=== PATIENT | female | born 1990 ===

== ENCOUNTER 2017-01-07 23:55 | Emergency (ER) | payer OTHER ==
[2017-01-07 23:56] VITALS: BMI 32.9
[2017-01-08 00:03] VITALS: BP 123/93; PULSE 70; RESP 16; TEMP 98.7; O2SAT 100
[2017-01-08 01:03] LABS: HEMATOCRIT 39.3 % (34.0-47.0); MEAN CELL VOLUME 82.4 fl (81.0-99.0); MEAN CORPUSCULAR HEMOGLOBIN 27.3 pg (27.0-31.0); MEAN CORPUSCULAR HGB CONC 33.2 g/dL (33.0-37.0); RED CELL DISTRIBUTION WIDTH 13.7 % (11.5-14.5); WHITE BLOOD COUNT 9.4 K/uL (4.8-10.8)
--- NOTE | 2017-01-08 01:06 | ED PDOC ---
HPI: Female Pain Chief Complaint (Provider): cramping and vaginal bleeding in first trimester History Per: Patient History/Exam Limitations: no limitations Onset/Duration Of Symptoms: Days (1), Gradual Current Symptoms Are (Timing): Still Present Severity: Moderate Pain Scale Rating Of: 7 Quality Of Discomfort: Cramping Associated Symptoms: denies: Fever, Chills, Nausea, Vomiting, Diarrhea, Loss Of Appetite, Back Pain, Urinary Symptoms Alleviating Factors: None Additional History Per: Patient Additional Complaint(s): 26 y/o presenting at roughly 10 weeks GA by LMP with 1 day of vaginal bleeding and crampy suprapubic pain. States pain started this AM, moderate intensity 02/12, no radiation, alleviating or aggravating factors. Associated with vaginal spotting initially last night but has increased to moderate bleeding as pain increased in intensity. Denies f/ c/n/v/cp/sob/dysuria/ any trauma or falls. Last intercourse was 3 days ago, some brownish discharge post intercourse which resolved spontaneously. No recent ravel or sick contacts. OBGYN appt upcoming January 17 at [facility]. Taking PNV, no US done yet in current . OBHx: , 3 FT vaginal deliveries w/o complications; 1 elective termination ( D&C was performed, does not recall GA at the time of termination) <Slade Horton - Last Filed: 01/08/17 01:20> <Fredy Romero - Last Filed: 01/08/17 02:31> Time Seen by Provider: 01/08/17 00:13 Chief Complaint (Nursing): Female Genitourinary Past Medical History Vital Signs: Last Vital Signs Temp 98.7 F 01/07/17 23:59 Pulse 70 01/07/17 23:59 Resp 16 01/07/17 23:59 BP 123/93 H 01/07/17 23:59 Pulse Ox 100 01/07/17 23:59 - Medical History PMH: No Chronic Diseases - Surgical History Surgical History: No Surg Hx - Family History Family History: States: Unknown Family Hx - Living Arrangements Living Arrangements: With Family - Social History Current smoker - smoking cessation education provided: No Alcohol: None Drugs: Denies <Slade Horton - Last Filed: 01/08/17 01:20> Vital Signs: Last Vital Signs Temp 98.7 F 01/07/17 23:59 Pulse 70 01/07/17 23:59 Resp 16 01/07/17 23:59 BP 123/93 H 01/07/17 23:59 Pulse Ox 100 01/08/17 01:35 <Fredy Romero - Last Filed: 01/08/17 02:31> - Home Medications Home Medications: Ambulatory Orders Medication Instructions Recorded Ibuprofen [Motrin Tab] 600 mg PO Q6 PRN #0 tab 02/23/16 Nitrofurantoin Macrocrystals 100 mg PO BID 5 Days 01/08/17 [Macrobid] - Allergies Allergies/Adverse Reactions: Allergies Allergy/AdvReac Type Severity Reaction Status Date / Time No Known Allergies Allergy Verified 02/20/16 09:37 Review of Systems Constitutional: Negative for: Fever, Chills Cardiovascular: Negative for: Chest Pain, Edema, Light Headedness Respiratory: Negative for: Cough, Shortness of Breath Gastrointestinal: Negative for: Nausea, Vomiting Genitourinary Female: Positive for: Vaginal Bleeding, Pelvic Pain. Negative for : Dysuria, Frequency, Incontinence Skin: Negative for: Rash Neurological: Negative for: Weakness, Confusion, Dizziness <Slade Horton - Last Filed: 01/08/17 01:20> Physical Exam - Physical Exam Appears: Positive for: No Acute Distress Head Exam: Positive for: ATRAUMATIC Skin: Positive for: Normal Color, Warm, Dry Cardiovascular/Chest: Positive for: Regular Rate, Rhythm Respiratory: Positive for: Normal Breath Sounds Pelvic Exam: Positive for: Active Bleeding, Other (cervical os slightly open with some eden membranes protruding outward, pooling of blood in post. vaginal vault ). Negative for: Tender Adnexa, Tender Uterus Back: Negative for: L CVA Tenderness, R CVA Tenderness <Slade Horton - Last Filed: 01/08/17 01:20> - Laboratory Results Result Diagrams: 01/08/17 00:52 - ECG O2 Sat by Pulse Oximetry: 100 - Progress ED Course And Treament: Bleeding in first trimester SAB v. Ectopic - TVUS - quant. Beta HCG - UA - urine preg - cbc Re-evaluation Time: 01:35 Condition: Re-examined <Slade Horton - Last Filed: 01/08/17 01:20> - Laboratory Results Result Diagrams: 01/08/17 00:52 <Fredy Romero - Last Filed: 01/08/17 02:31> Disposition <Slade Horton - Last Filed: 01/08/17 01:20> - Disposition Disposition: Routine/Home Disposition Time: 02:30 <Fredy Romero - Last Filed: 01/08/17 02:31> - Clinical Impression Clinical Impression: Threatened , Urinary tract infection - Disposition [facility]errals[facility]] Condition: STABLE Additional Instructions: Please followup with your OB-SCALE TECHNICIAN in 2 days for repeat beta-hcg ( blood test) and ultrasound. Prescriptions: Nitrofurantoin Macrocrystals [Macrobid] 100 mg PO BID 5 Days Instructions: Threatened Miscarriage (ED), Urinary Tract Infection in (ED)
[2017-01-08 01:07] LABS: RBC URINE 1529 /hpf (0-3); URINE BACTERIA OCC (<OCC); URINE BILIRUBIN NEGATIVE (NEGATIVE); URINE BLOOD LARGE (NEGATIVE); URINE COLOR YELLOW (YELLOW); URINE GLUCOSE (UA) NEG (Normal); URINE KETONE NEGATIVE (NEGATIVE); URINE LEUKOCYTE ESTERASE TRACE Leu/uL (Negative); URINE PROTEIN 30 mg/dL (NEGATIVE); URINE UROBILINOGEN 0.2-1.0 mg/dL (0.2-1.0); WBC URINE 32 /hpf (0-5)
--- NOTE | 2017-01-08 02:07 | US ---
EXAM: US , Transvaginal CLINICAL HISTORY: 26 years old, female; Signs and symptoms; Lmp or gestational age (in weeks): 10/26/16; Other: Bleeding, cramping; ; Additional info: Cramping and bleeding in 1st trimester TECHNIQUE: Real-time transvaginal obstetrical ultrasound of the maternal pelvis and a first trimester with image documentation. Transvaginal imaging was used for better evaluation of the fetus and adnexa. EXAM DATE/TIME: 01/08/2017 12:08 AM COMPARISON: No relevant prior studies available. FINDINGS: The uterus measures 10 x 7 x 6 cm. There is an intrauterine fluid-filled sac with somewhat irregular borders that may represent a gestational sac however there is no yolk sac or pole for definitive determination. If it does represent a gestational sac, the diameter corresponds to gestational age of 7 weeks 0 days. Nabothian cysts are noted in the cervix. The ovaries are normal bilaterally. The right ovary measures approximately 2 x 3 x 3 cm. The left ovary measures approximately 3 x 3 x 2 cm. Color flow and doppler vascular waveforms were demonstrated to both ovaries. IMPRESSION: Probable intrauterine sac without yolk sac or pole as discussed above. Followup beta-hCG levels are recommended along with followup ultrasound.
== END 2017-01-08 02:44 | disposition home or self-care (01) ==
LOC: H.ER 23:55
DX: O20.0 Threatened abortion (principal); O23.40 Unspecified infection of urinary tract in pregnancy, unspecified trimester

== ENCOUNTER 2017-01-08 17:47 | Emergency (ER) | payer OTHER ==
[2017-01-08 17:47] VITALS: BMI 32.9
[2017-01-08 18:04] VITALS: BP 121/82; PULSE 92; RESP 22; TEMP 97.4; O2SAT 100
--- NOTE | 2017-01-08 19:18 | ED PDOC ---
HPI: Female Pain Time Seen by Provider: 01/08/17 18:16 Chief Complaint (Nursing): Female Genitourinary Chief Complaint (Provider): Vaginal Bleeding History Per: Patient History/Exam Limitations: no limitations Onset/Duration Of Symptoms: Days, Persistent Current Symptoms Are (Timing): Still Present Severity: Moderate Quality Of Discomfort: Cramping Associated Symptoms: Other (abdominal pain) Additional History Per: Prior Records Additional Complaint(s): Laina Boothe is a 26 year old female, with a past medical history of a urinary tract infection, which she was diagnosed with yesterday at this ER, who presents to the emergency department for the evaluation of persistent vaginal bleeding and some "passed tissue". Associated cramping abdominal pain is currently present. Of note, patient is currently 7 weeks . 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: none specified Abnormal Vaginal Bleeding: Yes Past Medical History Reviewed: Historical Data, Nursing Documentation, Vital Signs Vital Signs: Last Vital Signs Temp 97.4 F L 01/08/17 18:00 Pulse 92 H 01/08/17 18:00 Resp 22 01/08/17 18:00 BP 121/82 01/08/17 18:00 Pulse Ox 100 01/08/17 18:00 - Medical History Other PMH: Urinary Tract Infection - Surgical History Other surgeries: Dilation and Curettage - Family History Family History: States: No Known Family Hx - Social History Current smoker - smoking cessation education provided: No Ex-Smoker (has not smoked in the last 12 months): No Alcohol: None Drugs: Denies - Home Medications Home Medications: Ambulatory Orders Medication Instructions Recorded Ibuprofen [Motrin Tab] 600 mg PO Q6 PRN #0 tab 02/23/16 Nitrofurantoin Macrocrystals 100 mg PO BID 5 Days 01/08/17 [Macrobid] - Allergies Allergies/Adverse Reactions: Allergies Allergy/AdvReac Type Severity Reaction Status Date / Time No Known Allergies Allergy Verified 02/20/16 09:37 Review of Systems ROS Statement: Except As Marked, All Systems Reviewed And Found Negative Gastrointestinal: Positive for: Abdominal Pain ("cramping") Genitourinary Female: Positive for: Vaginal Bleeding Physical Exam - Reviewed Nursing Documentation Reviewed: Yes Vital Signs Reviewed: Yes - Physical Exam Appears: Positive for: Non-toxic, No Acute Distress Head Exam: Positive for: ATRAUMATIC, NORMOCEPHALIC Skin: Positive for: Normal Color, Warm Eye Exam: Positive for: EOMI, Normal appearance, PERRL Cardiovascular/Chest: Positive for: Regular Rate, Rhythm. Negative for: Murmur Respiratory: Positive for: Normal Breath Sounds. Negative for: Respiratory Distress Gastrointestinal/Abdominal: Positive for: Normal Exam, Soft, Tenderness ( suprapubic). Negative for: Guarding, Rebound Back: Positive for: Normal Inspection. Negative for: L CVA Tenderness, R CVA Tenderness Neurologic/Psych: Positive for: Alert, Oriented - ECG O2 Sat by Pulse Oximetry: 100 (RA) Pulse Ox Interpretation: Normal Medical Decision Making Medical Decision Makin:16 Initial Impression: Tissue passage r/o spontaneous Initial Plan: * OB 1st Trimester & OB Transvaginal Ultrasound * Beta-HCG, Quantitative * Reevaluation Scribe Attestation: Documented by Alcides Caba, acting as a scribe for Deneen Menedz MD. Provider Scribe Attestation: All medical record entries made by the Scribe were at my direction and personally dictated by me. I have reviewed the chart and agree that the record accurately reflects my personal performance of the history, physical exam, medical decision making, and the department course for this patient. I have also personally directed, reviewed, and agree with the discharge instructions and disposition. Disposition - Clinical Impression Clinical Impression: Incomplete miscarriage - Disposition [facility]errals: [facility] [[facility]] Disposition: Transfer of Care Disposition Time: 19:00 Condition: STABLE Instructions: Spontaneous Miscarriage (ED) Print Language: UKRAINIAN Patient Signed Over To: Fredy Romero Handoff Comments: Pending labs and ultrasound.
--- NOTE | 2017-01-08 19:50 | ED PDOC ---
- ECG O2 Sat by Pulse Oximetry: 100 (RA) Pulse Ox Interpretation: Normal Medical Decision Making Medical Decision Makin:00 Patient transferred over to provider from Deneen Mendez MD. Pending ultrasound. IMPRESSION: No intrauterine gestation seen. Findings could represent a complete or a not yet visible (less than 4 week) intrauterine gestation. Note that an ectopic gestation is not excluded entirely in this patient, however. Recommend correlation with quantitative beta HCG levels and the clinical presentation, as well as close clinical followup, including serial beta-hCG levels. 8PM: Pt. likely experiencing spontaneous Ab. Patient informed of results, POC collected and sent to lab for cytology. Told patient ot f/u w/ OB-TELEPHONE ADVICE NURSE for repeat beta testing and ultrasound in 2 days. Gave patient return precations: fever, chills, abdominal pain, worsening vaginal bleeding, or other concerning symptoms. Scribe Attestation: Documented by Alcides Caba, acting as a scribe for Fredy Romero MD. Provider Scribe Attestation: All medical record entries made by the Scribe were at my direction and personally dictated by me. I have reviewed the chart and agree that the record accurately reflects my personal performance of the history, physical exam, medical decision making, and the department course for this patient. I have also personally directed, reviewed, and agree with the discharge instructions and disposition. Disposition - Clinical Impression Clinical Impression: Incomplete miscarriage - POA Present On Arrival: None - Disposition [facility]errals: [facility] [[facility]] Disposition: Routine/Home Disposition Time: 20:20 Condition: STABLE Instructions: Spontaneous Miscarriage (ED) Print Language: MALAGASY
--- NOTE | 2017-01-08 19:59 | US ---
EXAM: US Pelvis Complete, Transabdominal CLINICAL HISTORY: 26 years old, female; Signs and symptoms; Lmp or gestational age (in weeks): 10/26/16; Antepartum complications; , hemorrhage; Additional info: Possible tissue passage TECHNIQUE: Real-time transabdominal pelvic ultrasound (complete) with image documentation. EXAM DATE/TIME: 01/08/2017 6:18 PM COMPARISON: No relevant prior studies available. FINDINGS: Note: Transvaginal scanning was not done because of patient refusal. Uterus: Measures 11 x 5 x 7.2 cm. No intrauterine gestation is seen. Endometrial stripe measures 1.1 cm in thickness, and does not appear significantly heterogeneous. Cervix appears long and closed. Right ovary: Within normal limits in appearance. Measures 3.1 x 1.9 x 2.0 cm. Flow seen in the right ovary on Doppler imaging, with no evidence of torsion. Left ovary: Within normal limits in appearance. Measures 2.6 x 1.6 x 2.6 cm. Flow seen in the left ovary on Doppler imaging, with no evidence of torsion. Cul-de-sac: No free fluid. IMPRESSION: No intrauterine gestation seen. Findings could represent a complete or a not yet visible (less than 4 week) intrauterine gestation. Note that an ectopic gestation is not excluded entirely in this patient, however. Recommend correlation with quantitative beta HCG levels and the clinical presentation, as well as close clinical followup, including serial beta-hCG levels. See above for remaining findings.
== END 2017-01-08 20:21 | disposition home or self-care (01) ==
LOC: H.ER 17:47
DX: O03.4 Incomplete spontaneous abortion without complication (principal); Z87.440 Personal history of urinary (tract) infections; Z87.891 Personal history of nicotine dependence

== ENCOUNTER 2017-01-10 09:33 | Emergency (ER) | payer OTHER ==
[2017-01-10 09:33] VITALS: BMI 32.9
[2017-01-10 09:38] VITALS: BP 111/68; PULSE 81; RESP 18; TEMP 98.9; O2SAT 97
--- NOTE | 2017-01-10 09:54 | ED PDOC ---
HPI: General Adult Time Seen by Provider: 01/10/17 09:37 Chief Complaint (Provider): Bloodwork follow up History Per: Patient History/Exam Limitations: no limitations Onset/Duration Of Symptoms: Days Have you had recent travel within the past 21 days to any of the following countries: [place], [place], [place] or [place]?: No Current Symptoms Are (Timing): Better Recently: Seen In ED Additional History Per: Patient Additional Complaint(s): The pt is a 26yo female, presents to the ED for repeat bloodwork as instructed upon her last ED visit. Pt reports she was here 2 days ago due to a miscarriage , had bloodwork as well as an ultrasound done. Pt's US showed no visible gestational sac. Currently, pt reports decreased cramping, pelvic pain, as well as decreased bleeding. She denies any nausea, vomiting, diarrhea or dysuria. Pt offers no additional medical complaints. Of note, pt [facility] visit however was informed it was "too packed" prompting her to visit the ED. Past Medical History Reviewed: Historical Data, Nursing Documentation, Vital Signs Vital Signs: Last Vital Signs Temp 98.9 F 01/10/17 09:37 Pulse 81 01/10/17 09:37 Resp 18 01/10/17 09:37 BP 111/68 01/10/17 09:37 Pulse Ox 97 01/10/17 13:10 - Medical History PMH: No Chronic Diseases - Surgical History Surgical History: No Surg Hx - Family History Family History: States: Unknown Family Hx - Social History Current smoker - smoking cessation education provided: No Alcohol: None Drugs: Denies - Home Medications Home Medications: Ambulatory Orders Medication Instructions Recorded Ibuprofen [Motrin Tab] 600 mg PO Q6 PRN #0 tab 02/23/16 Nitrofurantoin Macrocrystals 100 mg PO BID 5 Days 01/08/17 [Macrobid] - Allergies Allergies/Adverse Reactions: Allergies Allergy/AdvReac Type Severity Reaction Status Date / Time No Known Allergies Allergy Verified 01/10/17 09:57 Review of Systems ROS Statement: Except As Marked, All Systems Reviewed And Found Negative Gastrointestinal: Positive for: Abdominal Pain (decreased abdominal pain compared to last visit). Negative for: Nausea, Vomiting, Diarrhea Genitourinary Female: Positive for: Vaginal Bleeding (decreased vaginal bleeding compared to last visit). Negative for: Dysuria Physical Exam - Reviewed Nursing Documentation Reviewed: Yes Vital Signs Reviewed: Yes - Physical Exam Appears: Positive for: Well, Non-toxic, No Acute Distress Head Exam: Positive for: ATRAUMATIC, NORMAL INSPECTION, NORMOCEPHALIC Skin: Positive for: Normal Color, Warm, Dry Eye Exam: Positive for: Normal appearance Neck: Positive for: Normal, Supple Cardiovascular/Chest: Positive for: Regular Rate, Rhythm Respiratory: Negative for: Respiratory Distress Gastrointestinal/Abdominal: Positive for: Normal Exam, Soft. Negative for: Tenderness Back: Positive for: Normal Inspection. Negative for: L CVA Tenderness, R CVA Tenderness Extremity: Positive for: Normal ROM. Negative for: Tenderness, Pedal Edema Neurologic/Psych: Positive for: Alert, Oriented - Laboratory Results Result Diagrams: 01/10/17 10:13 01/10/17 10:13 Interpretation Of Abn Labs: 643.93 Interpretation Of Abnormal: 1779 previous bhcg - ECG O2 Sat by Pulse Oximetry: 97 (RA) Pulse Ox Interpretation: Normal - Progress ED Course And Treament: 1309: Stable. AAOx3. Pt. with miscarriage. Bhcg decreasing significantly. Fu with obgyn in 1 week for repeat bhcg. Pt. stable. Pain free. Continue uti med. Medical Decision Making Medical Decision Making: Time: 0950 Impression: follow up s/p miscarriage Plan: * Beta hCG * CBC * CMP * OB US Limited * OB Transvaginal * Reassess US Transvaginal Impression 01/08/17 Probable intrauterine sac without yolk sac or pole as discussed above. Followup beta-hCG levels are recommended along with followup ultrasound. US OB Impression 01/08/17 No intrauterine gestation seen. Findings could represent a complete or a not yet visible (less than 4 week) intrauterine gestation. Note that an ectopic gestation is not excluded entirely in this patient, however. Recommend correlation with quantitative beta HCG levels and the clinical presentation, as well as close clinical followup, including serial beta-hCG levels. Scribe Attestation: Documented by Beverley Barnes acting as a scribe for Cristian Baumann MD. Provider Attestation: All medical record entries made by the Scribe were at my direction and personally dictated by me. I have reviewed the chart and agree that the record accurately reflects my personal performance of the history, physical exam, medical decision making, and the department course for this patient. I have also personally directed, reviewed, and agree with the discharge instructions and disposition. Disposition - Clinical Impression Clinical Impression: Spontaneous miscarriage - Patient ED Disposition Is Patient to be Admitted: No Counseled Patient/Family Regarding: Studies Performed, Diagnosis, Need For Followup - Disposition [facility]errals[facility]] - 01/11/17 Disposition: Routine/Home Disposition Time: 13:45 Condition: STABLE Additional Instructions: Return if not better in 3 days. See the women[facility] clinic or here for repeat bhcg in 1 week. Instructions: Spontaneous Miscarriage (ED)
[2017-01-10 10:43] LABS: BASO % 0.6 % (0.0-2.0); EOS # 0.3 K/uL (0.0-0.7); HEMATOCRIT 41.5 % (34.0-47.0); LYMPH # 1.5 K/uL (1.0-4.3); LYMPH % 21.6 % (20.0-40.0); MEAN CELL VOLUME 83.4 fl (81.0-99.0); MEAN CORPUSCULAR HEMOGLOBIN 27.5 pg (27.0-31.0); MEAN CORPUSCULAR HGB CONC 32.9 g/dL (33.0-37.0); MONO # 0.4 K/uL (0.0-0.8); MONO % 5.4 % (0.0-10.0); NEUT # 4.8 K/uL (1.8-7.0); NEUT % 68.4 % (50.0-75.0); NRBC % 0.1 % (0.0-0.0)
[2017-01-10 11:02] LABS: ALB/GLOB RATIO 1.3 (1.0-2.1); ALKALINE PHOSPHATASE 74 U/L (38-126); ALT/SGPT 24 U/L (9-52); AST/SGOT 21 U/L (14-36); BILIRUBIN,TOTAL 0.4 mg/dl (0.2-1.3); BLOOD UREA NITROGEN 11 mg/dl (7-17); CALCIUM 9.2 mg/dL (8.4-10.2); CARBON DIOXIDE 24 mmol/L (22-30); CHLORIDE 107 mmol/L (98-107); GFR AFRICAN-AMERICAN > 60; GLUCOSE,RANDOM 111 mg/dL (65-105); POTASSIUM 3.7 MMOL/L (3.6-5.0); SODIUM 142 mmol/l (132-148); TOTAL PROTEIN 7.3 G/DL (6.3-8.2)
--- NOTE | 2017-01-10 16:49 | US ---
HISTORY: pain of ; could not see iup few days ago COMPARISON: 01/08/2017 TECHNIQUE: Transvaginal only. Real -time technique with 2D, duplex and color Doppler FINDINGS: UTERUS: Measures 4.1 x 6.7 x 11.7 cm. Normal in size and appearance. No fibroid or other mass lesion seen. ENDOMETRIUM: Measures 8.5 mm in diameter. No ultrasound findings to suggest gestational sac, fluid, debris, mass or polyp or other pathologic process within the endometrium. CERVIX: No cervical abnormality identified. RIGHT OVARY: Measures 2.2 x 1.5 x 3.1 cm. No solid mass. Normal flow. LEFT OVARY: Measures 1.3 x 2.1 x 2.8 cm. No solid mass. Normal flow. FREE FLUID: No significant free fluid noted. OTHER FINDINGS: None. IMPRESSION: Unremarkable pelvic ultrasound.
== END 2017-01-10 13:50 | disposition home or self-care (01) ==
LOC: H.ER 09:33
DX: O03.9 Complete or unspecified spontaneous abortion without complication (principal)

== ENCOUNTER 2017-07-27 18:00 | Emergency (ER) | payer OTHER, SELFPAY ==
[2017-07-27 18:01] VITALS: BMI 32.9
[2017-07-27 18:07] VITALS: BP 147/95; RESP 18; TEMP 98.9; O2SAT 99
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
[2017-07-27 18:51] VITALS: PULSE 68
[2017-07-27 19:11] LABS: BASO % 0.4 % (0.0-2.0); EOS # 0.2 K/uL (0.0-0.7); HEMOGLOBIN 14.2 g/dL (12.0-16.0); LYMPH # 2.5 K/uL (1.0-4.3); LYMPH % 26.9 % (20.0-40.0); MEAN CELL VOLUME 83.8 fl (81.0-99.0); MEAN CORPUSCULAR HEMOGLOBIN 27.2 pg (27.0-31.0); MEAN CORPUSCULAR HGB CONC 32.5 g/dL (33.0-37.0); MEAN PLATELET VOLUME 9.5 fl (7.2-11.7); MONO # 0.4 K/uL (0.0-0.8); MONO % 4.8 % (0.0-10.0); NEUT % 65.9 % (50.0-75.0); NRBC % 0.1 % (0.0-0.0); RBC 5.21 Mil/uL (3.80-5.20); RED CELL DISTRIBUTION WIDTH 13.9 % (11.5-14.5); WHITE BLOOD COUNT 9.1 K/uL (4.8-10.8)
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
[2017-07-27 20:21] LABS: ALB/GLOB RATIO 1.3 (1.0-2.1); ALBUMIN 4.3 g/dL (3.5-5.0); ALT/SGPT 28 U/L (9-52); AST/SGOT 42 U/L (14-36); BLOOD UREA NITROGEN 10 mg/dl (7-17); CALCIUM 9.1 mg/dL (8.4-10.2); GFR AFRICAN-AMERICAN > 60; GFR NON-AFRICAN AMERICAN > 60
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
--- NOTE | 2017-07-29 10:07 | CARD ---
APPROVED REPORT EKG Measurement Heart [id number] <Conclusion> Normal sinus rhythm Normal ECG
== END 2017-07-27 21:17 | disposition home or self-care (01) ==
LOC: H.ER 18:00
DX: S16.1XXA Strain of muscle, fascia and tendon at neck level, initial encounter (principal); S09.90XA Unspecified injury of head, initial encounter; V43.52XA Car driver injured in collision with other type car in traffic accident, initial encounter; Y92.410 Unspecified street and highway as the place of occurrence of the external cause
CPT/HCPCS: 70450; 72125; 73030; 73140; 80053; 81025; 82948; 83735; 84100; 84703; 85025; 93005; 99285; G0480

== ENCOUNTER 2018-01-31 12:29 | Emergency (ER) | payer OTHER, SELFPAY ==
[2018-01-31 12:29] VITALS: BMI 32.9
[2018-01-31] MEDS ORDERED: Sodium Chloride 0.9% 1,000 ML IV STA (13:57)
--- NOTE | 2018-01-31 14:00 | ED PDOC ---
HPI: Female Pain Time Seen by Provider: 01/31/18 12:55 Chief Complaint (Nursing): Abdominal Pain Chief Complaint (Provider): Pelvic pain History Per: Patient History/Exam Limitations: no limitations Onset/Duration Of Symptoms: Days (2 weeks) Current Symptoms Are (Timing): Still Present Additional Complaint(s): Pt. with pelvic pain across lower. Started before pt. period. Period came and went and pain still present. Is like a menstrual cramping. No nausea, vomit, diarrhea. No weakness, back pain. No dysuria or freq urination. No vaginal dc or bleeding. No weakness. No umbilical pain. No new food or drinks. Past Medical History Reviewed: Nursing Documentation, Vital Signs Vital Signs: Last Vital Signs Temp 98.5 F 01/31/18 12:39 Pulse 85 01/31/18 12:39 Resp 101 H 01/31/18 12:39 BP Pulse Ox 98 01/31/18 12:39 - Medical History PMH: No Chronic Diseases - Family History Family History: States: Unknown Family Hx - Home Medications Home Medications: Ambulatory Orders Medication Instructions Recorded Ibuprofen [Motrin Tab] 600 mg PO Q6 PRN #0 tab 02/23/16 Nitrofurantoin Macrocrystals 100 mg PO BID 5 Days cap 01/08/17 [Macrobid] Ibuprofen [Motrin Tab] 600 mg PO Q8 PRN #60 tab 07/27/17 Ibuprofen [Motrin] 600 mg PO TID 7 Days tab 01/31/18 - Allergies Allergies/Adverse Reactions: Allergies Allergy/AdvReac Type Severity Reaction Status Date / Time No Known Allergies Allergy Verified 01/10/17 09:57 - Laboratory Results Result Diagrams: 01/31/18 14:10 01/31/18 14:10 Interpretation Of Abn Labs: no acute - ECG O2 Sat by Pulse Oximetry: 98 Pulse Ox Interpretation: Normal - CT Scan/US US Other Rad Studies (CT/US): Radiology Report Reviewed Other Rad Interpretation: ovarian cyst - Progress ED Course And Treament: 1553: Stable. AAOx3. Pain free. Tolerated PO. Fu with pcp. Disposition - Clinical Impression Clinical Impression: Ovarian cyst - Patient ED Disposition Is Patient to be Admitted: No Counseled Patient/Family Regarding: Studies Performed, Diagnosis, Need For Followup, Rx Given - Disposition [facility] - 02[facility]18 [facility] [Outside] - 02/01/18 Disposition: Routine/Home Disposition Time: 15:56 Condition: STABLE Additional Instructions: Return if not better in 3 days. Prescriptions: Ibuprofen [Motrin] 600 mg PO TID 7 Days tab Instructions: Ovarian Cysts Forms: [facility] (Urdu), [facility] ED School/Work Excuse
[2018-01-31 14:36] LABS: ALB/GLOB RATIO 1.2 (1.0-2.1); ALBUMIN 4.1 g/dL (3.5-5.0); ALT/SGPT 50 U/L (9-52); AST/SGOT 34 U/L (14-36); BLOOD UREA NITROGEN 10 mg/dl (7-17); CALCIUM 8.8 mg/dL (8.4-10.2); GFR AFRICAN-AMERICAN > 60; GFR NON-AFRICAN AMERICAN > 60
[2018-01-31 14:40] LABS: BASO % 0.4 % (0.0-2.0); EOS # 0.1 K/uL (0.0-0.7); EOS % 1.5 % (0.0-4.0); HEMOGLOBIN 13.8 g/dL (12.0-16.0); LYMPH # 1.8 K/uL (1.0-4.3); LYMPH % 25.1 % (20.0-40.0); MEAN CELL VOLUME 83.6 fl (81.0-99.0); MEAN CORPUSCULAR HEMOGLOBIN 28.1 pg (27.0-31.0); MEAN CORPUSCULAR HGB CONC 33.7 g/dL (33.0-37.0); MONO # 0.5 K/uL (0.0-0.8); MONO % 7.3 % (0.0-10.0); NEUT # 4.7 K/uL (1.8-7.0); NEUT % 65.7 % (50.0-75.0); RBC 4.91 Mil/uL (3.80-5.20); RED CELL DISTRIBUTION WIDTH 13.5 % (11.5-14.5); WHITE BLOOD COUNT 7.1 K/uL (4.8-10.8)
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
[2018-01-31 16:53] VITALS: BP 123/77; PULSE 78; RESP 16; TEMP 98.2; O2SAT 99
== END 2018-01-31 16:40 | disposition home or self-care (01) ==
LOC: H.ER 12:29
DX: N83.201 Unspecified ovarian cyst, right side (principal)
CPT/HCPCS: 76830; 80053; 81025; 85025; 99284; J2270; J2405; J7030

== ENCOUNTER 2018-06-03 17:14 | Emergency (ER) | payer OTHER ==
[2018-06-03 17:15] VITALS: BMI 32.9
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
[2018-06-03 18:54] LABS: BASO # 0.1 K/uL (0.0-0.2); BASO % 0.7 % (0.0-2.0); EOS # 0.2 K/uL (0.0-0.7); EOS % 1.8 % (0.0-4.0); HEMOGLOBIN 12.2 g/dL (12.0-16.0); LYMPH # 1.6 K/uL (1.0-4.3); LYMPH % 17.2 % (20.0-40.0); MEAN CELL VOLUME 86.2 fl (81.0-99.0); MEAN CORPUSCULAR HEMOGLOBIN 29.2 pg (27.0-31.0); MEAN CORPUSCULAR HGB CONC 33.9 g/dL (33.0-37.0); MEAN PLATELET VOLUME 8.6 fl (7.2-11.7); MONO # 0.5 K/uL (0.0-0.8); MONO % 5.9 % (0.0-10.0); NEUT # 6.9 K/uL (1.8-7.0); NEUT % 74.4 % (50.0-75.0); NRBC % 0.1 % (0.0-0.0); RBC 4.19 Mil/uL (3.80-5.20); RED CELL DISTRIBUTION WIDTH 14.3 % (11.5-14.5); WHITE BLOOD COUNT 9.2 K/uL (4.8-10.8)
[2018-06-03 19:05] LABS: ALBUMIN 3.4 g/dL (3.5-5.0); ALT/SGPT 18 U/L (9-52); AST/SGOT 34 U/L (14-36); BLOOD UREA NITROGEN 8 mg/dl (7-17); CALCIUM 8.3 mg/dL (8.4-10.2); GFR NON-AFRICAN AMERICAN > 60
--- NOTE | 2018-06-03 19:22 | ED PDOC ---
- Laboratory Results Result Diagrams: 06/03/18 18:50 06/03/18 18:50 - ECG O2 Sat by Pulse Oximetry: 99 (RA) Pulse Ox Interpretation: Normal Medical Decision Making Medical Decision Making: Time: 1899 --Patient signed out to this provider by Dr. Velasco, pending US, labs and reevaluation. Time: 2003 US OB : CLINICAL HISTORY: Abdominal pain. TECHNIQUE: Realtime sonographic images were obtained in multiple projections. COMMENTS: There is a single intrauterine gestation, transverse presentation. The BPD measures 4.8 cm corresponds to a gestational age of 20 weeks 4 days. The HC measures 16.6 cm corresponds to a gestational age of 19 weeks 2 days. The AC measures 14.1 cm corresponds to a gestational age of 20 weeks 0 days. The FL measures 3.4 cm corresponds to a gestational age of 20 weeks 4 days. The composite age is 20 weeks 0 days. heart motion was observed. The heart rate is 158 beats per minute. The placenta is fundal posterior and free of the cervical os. The cervical length is 6.1 cm and appears closed. IMPRESSION: 1. Single, live, intrauterine gestation with a composite gestational age of 20 weeks 0 days. 2. The cervix is closed. Time: 2053 --Patient is medically clear for discharge home. Diagnosis UTI, abdominal pain and . --- Scribe Attestation: Documented by Chari Wasserman, acting as a scribe for Shay Cedillo MD Provider Scribe Attestation: All medical record entries made by the Scribe were at my direction and personally dictated by me. I have reviewed the chart and agree that the record accurately reflects my personal performance of the history, physical exam, medical decision making, and the department course for this patient. I have also personally directed, reviewed, and agree with the discharge instructions and disposition. Disposition - Clinical Impression Clinical Impression: Abdominal pain during , UTI (urinary tract infection) - POA Present On Arrival: None - Disposition Disposition: Routine/Home Disposition Time: 20:54 Condition: STABLE Prescriptions: Nitrofurantoin Macrocrystals [Macrobid] 100 mg PO BID #14 cap Instructions: Urinary Tract Infections in Adults Forms: [facility] (Belarusian)
[2018-06-03 21:01] VITALS: BP 104/73; PULSE 70; RESP 16; TEMP 99
[2018-06-03 23:10] VITALS: O2SAT 99
--- NOTE | 2018-06-04 10:20 | US ---
Date of service: 06/03/2018 PROCEDURE: OB Pelvic Ultrasound HISTORY: abd pain LMP: 01/10/2018 COMPARISON: None available. FINDINGS: UTERUS: Placenta: Posterior Presentation: Transverse BPD: 4.8 cm compatible with estimated gestational age of 20 weeks, 4 days HC: 16.6 cm compatible with estimated gestational age of 19 weeks, 2 days HC: 14.1 cm compatible with estimated gestational age of 19 weeks, 3 days FL: 3.4 cm compatible with estimated gestational age of 20 weeks, 4 days Heart rate: 158 bpm. age (Ultrasound estimated): 20 weeks, 0 days Charissa-gestational hemorrhage: None. Date of delivery (Ultrasound estimated) : 10/21/2018 EFW: 322.0 grams +/-48.3 grams (11 ounces +/-2 ounce) CERVIX: Measures 6.1 cm. Long and closed. No cervical abnormality seen. FREE FLUID: None. OTHER FINDINGS: None. IMPRESSION: Single live intrauterine gestation with average ultrasound age of 20 weeks, 0 days. heart rate 158 beats per minute. Cervix long closed.
== END 2018-06-03 21:00 | disposition home or self-care (01) ==
LOC: H.ER 17:14
DX: O26.92 Pregnancy related conditions, unspecified, second trimester (principal); R10.2 Pelvic and perineal pain; Z3A.20 20 weeks gestation of pregnancy; O23.42 Unspecified infection of urinary tract in pregnancy, second trimester

== ENCOUNTER 2018-10-23 11:48 | Emergency (ER) | payer MEDICAID, SELFPAY ==
[2018-10-23 12:47] VITALS: BMI 32.1
--- NOTE | 2018-10-23 22:59 | OBHP ---
Datetime: 10/23/2018 13:10 IP Admit Plan: Discharge home Admit Comment, IP Provider: HPI: Laina is a 28 year old at 39.3 who presents to triage today to "make sure the baby is ok." She has been intermittently seeing a provider at [facility], but was unhappy with the care she had been receiving and has not been to see him in several weeks. She was ju st concerned about the baby and wanted to make sure everything was alright. Denies any contractions, bleeding or LOF. Feeling consistent movement. ELIDIA: 10/27/18 Initial ELIDIA given by patient was 10/21, however this was from a 21 week US and her ELIDIA by LMP was , so she should be dated by her LMP Problems Denies History 3 previous NSVDs, 3 daughters aged 12, 10 and 2. No complications with those pregnancies or delive arpan PMH Denies PSH Denies Medications PNV Allergies Denies Social Denies tobacco, alcohol or drug use PHYSICAL EXAM Vitals reviewed labs: Hep B neg, HIV/RPR neg, GC/Chlamydia neg, Quantiferon positive (no CXR documented), Rubella immune, 1 hr GTT 128 Bedside US: vertex presentation ASSESSMENT/PLAN: 28 year old at 39.3 weeks here to see a provider. Discussed with he r the importance of seeing an outpatient provider regularly to ensure wellbeing. It wa s recommended she schedule an appt ERIN at [facility] since it is likely to late to transfer care to any one - Collected GBS today since it has not been done - Confirmed vertex presentation by US - Labor precautions reviewed, recommended she talk with [facility] about scheduling an IOL if she goe s past 41 weeks Brooke Best MD OB Fellow. Addendum: patient was discussed with the OB fellow and I agree with the above note. Abdomen - PN: Normal Lungs - PN: Normal Heart - PN: Normal HEENT - PN: Normal General - PN: Normal Presentation-Admit: Vertex IP Fetus A Comments: Reactive NST FHR - Baseline A Provider: 145 Gestation - Est Wks by US: 39.3 Vital Signs Provider: Reviewed; Within Normal Limits NICHD Variability Prov Fetus A: Moderate 6-25bpm NICHD Accel Fetus A IP Provider: [id number]
[2018-10-23 23:04] VITALS: BP 114/63; PULSE 75; TEMP 97.8
== END 2018-10-23 13:30 | disposition home or self-care (01) ==
LOC: H.EROB2 11:48 → H.L&D 12:24 → H.EROB2 13:30
DX: O09.33 Supervision of pregnancy with insufficient antenatal care, third trimester (principal); Z3A.39 39 weeks gestation of pregnancy; Z36.9 Encounter for antenatal screening, unspecified

== ENCOUNTER 2018-10-24 23:35 | Inpatient (IN) | payer MEDICAID, SELFPAY ==
[2018-10-25] MEDS ORDERED: Lactated Ringer's 1,000 ML IV ONE (00:13)
[2018-10-25 00:14] VITALS: BMI 32.5
[2018-10-25] MEDS ORDERED: Oxytocin 30 UNIT in NS 500 ml 30 UNITS/500 ML BAG IV ONE (00:39)
[2018-10-25] MEDS ORDERED: OXYTOCIN/0.9 % NS 20 UNIT/1,000 ML BAG IV ONE (00:39)
[2018-10-25 00:42] LABS: BASO % 0.5 % (0.0-2.0); EOS # 0.1 K/uL (0.0-0.7); EOS % 1.6 % (0.0-4.0); HEMOGLOBIN 10.6 g/dL (12.0-16.0); LYMPH # 1.7 K/uL (1.0-4.3); LYMPH % 21.3 % (20.0-40.0); MEAN CORPUSCULAR HEMOGLOBIN 23.4 pg (27.0-31.0); MEAN CORPUSCULAR HGB CONC 31.9 g/dL (33.0-37.0); MEAN PLATELET VOLUME 8.8 fl (7.2-11.7); MONO # 0.5 K/uL (0.0-0.8); MONO % 6.9 % (0.0-10.0); NEUT # 5.5 K/uL (1.8-7.0); NEUT % 69.7 % (50.0-75.0); RBC 4.55 Mil/uL (3.80-5.20); RED CELL DISTRIBUTION WIDTH 16.3 % (11.5-14.5); WHITE BLOOD COUNT 7.9 K/uL (4.8-10.8)
[2018-10-25 00:47] LABS: MEAN CELL VOLUME 73.1 fl (81.0-99.0)
[2018-10-25 02:15] VITALS: O2SAT 99
[2018-10-25] MEDS: Lactated Ringer's 1,000 ML IV ONE ×2 (02:23→06:01)
[2018-10-25] MEDS ORDERED: Oxycodone/Acetaminophen 5/325 mg Tab PO PRN ×2 (06:38→09:22)
[2018-10-25] MEDS ORDERED: Benzocaine/Menthol SPRAY TOP PRN ×2 (06:38→09:22)
--- NOTE | 2018-10-25 08:20 | OBADHP ---
Datetime: 10/25/2018 00:30 Admit Comment, IP Provider: Pt is a 28 yo F EGA of 39.4 wks ELIDIA 10/27/18 based on LMP 01/20/18 and 21wk U/S done 06/13/18. Pt is here for SROM since 10:45pm first light red then light green in col or, still leaking. Feeling contractions every 5 mins apart lasts 35 secs. Denies vaginal bleeding. Re ports good movement. Denies fever, chills, headaches, blurry vision, SOB, chest pain, dizziness , nausea, vomiting, diarrhea, constipation, or dysuria. All other systems reviewed and negative Provider: [facility] PMHx: Denies Meds: PNV- last took Jun/Jul due to forgetting to take pill FMHx: Father-DM Allergies: NKDA SurgHx: Denies SOCHx: Denies EtOH, tobacco, or drug use OBGYN: No complications with , No DM or HTN in pregancy, Last pap reports 01/09/18 report s normal No hx of STD's 2005, 2009, 2016- 3 , 1 - 2007, 2017-miscarraige Labs: Quant + 06/10/18 no report of CXR done, ABO: O +, AB neg, GBS Unknown, Hep B neg, Hep C neg, HIV neg, RPR non reactive, Rubella- Immune, GC/CHL neg Assessment Pt is a 28 yo F EGA of 39.4 wks ELIDIA 10/27/18 based on LMP 01/20/18 and 21wk U/S done 06/13/18 . Pt is here for SROM since 10:45pm. Plan: -Admit to L _ D -Initiate Labor protocol -IVF's, Pitocin -CBC, type and screen, HIV, RPR 3rd TM labs -Monitor contractions and VS -Monitor heart tracing 140's, moderate variability, 15x15 accelerations, no decels -Bimanual exam 1-2cms/50%/-3 -Bedside U/S- Vertex -Needs CXR after delivery to confirm negative due to Quant + labs 06/10/18 Case reveiwed and discussed with attending Gricelda Ovalles PGY1 Extremities - PN: Normal Abdomen - PN: Normal Lungs - PN: Normal Heart - PN: Normal HEENT - PN: Normal General - PN: Normal Presentation-Admit: Vertex FHR - Baseline A Provider: 140's Membranes, Provider: Ruptured Comments, ACOG Physical Exam: GEN: NAD HEENT: NCAT, EOMI RESP: CTA, no wheezes, rales, or rhonchi CV: RRR, No m/r/g ABD: Gravid, Soft, nontender to palpation LE: no edema Monitor FHR tracing 140's, moderate variability, 15x15 accels, no decels Bimanual- 1-2cms/50%/-3 Bedside U/S- vertex Pool Provider: Positive IP Hx Assessment: The History has been Reviewed and is Current Vital Signs Provider: Reviewed; Within Normal Limits IP Chief Complaint: Uterine contractions; Suspected ruptured membranes NICHD Variability Prov Fetus A: Moderate 6-25bpm NICHD Accel Fetus A IP Provider: 15X15 FHR Category Provider Fetus A: Category I NICHD Decel Fetus A IP Provider: None Dilatation, Provider: 1-2 Effacement, Provider: 50% Station, Provider: -3 EGA AdmitDate IP: 39.5 IP Adm Impression: Term, intrauterine ; Ruptured Membranes IP Admit Plan: Admit to unit; Initiate labor protocol Datetime: 10/23/2018 13:10 IP Fetus A Comments: Reactive NST Gestation - Est Wks by US: 39.3
--- NOTE | 2018-10-25 08:45 | OBDS ---
DELIVERY PERSONNEL Delivery Doctor: Keri Slaughter MD Buffer Operator: Ma. Cherise Gaines RN Resident: Charlette MATERNAL INFORMATION Delivery Anesthesia: Local Medications in Delivery: Pitocin Estimated Blood Loss (ml): 200 Placenta Cultured: No Maternal Complications: None Provider Comments: Normal spontaneous vaginal delivery. Patient delivered viable infant female with Apgars of 9 and 9 at 1 and 5 minutes respectively. In robbi delivered via MARIELOS position. Placenta delivered spontaneously. Laceration repaired, as above. Uterus firm and appropriately hemostatic following delivery. Patient tolerated delivery and repair w ell. No complications. Estimated blood loss 200 cc. LABOR SUMMARY EDC: 10/27/2018 00:00 No. Babies in Womb: 1 Attempted: No Labor Anesthesia: None LABOR INFORMATION Reason for Induction: Not Applicable Onset of Labor: 10/23/2018 17:00 Complete Dilatation: 10/25/2018 06:22 Oxytocin: N/A Group B Beta Strep: Done, Result Unknown Steroids Given: None Reason Steroids Not Administered: Not Applicable MEMBRANES Membranes Rupture Method: Spontaneous Rupture of Membranes: 10/24/2018 22:45 Length of Rupture (hrs): 7.68 Amniotic Fluid Color: Light Meconium Amniotic Fluid Amount: Moderate Amniotic Fluid Odor: Normal STAGES OF LABOR Stage 1 hrs: 37 Stage 1 min: 22 Stage 2 hrs: 0 Stage 2 min: 4 Stage 3 hrs: 0 Stage 3 min: 5 Total Time in Labor hrs: 37 Total Time in Labor min: 31 VAGINAL DELIVERY Episiotomy: None Laceration Extension: Second Degree Laceration Type: Vaginal Laceration Repair: Yes Laceration Repair Note: Second-degree midline perineal laceration. Area infiltrated with 1% lidocai ne. Laceration repaired with two-point 0 repeat without complication. Patient tolerated repair well . Initial Vag Sponge Count: 15 Final Vag Sponge Count: 15 Initial Vag Sharps Count: 2 Final Vag Sharps Count: 2 Sponge Count Correct: Yes Sharps Count Correct: Yes BABY A INFORMATION Infant Delivery Date/Time: 10/25/2018 06:26 Method of Delivery: Vaginal Born in Route : No : N/A Forceps: N/A Vacuum Extraction: N/A Shoulder Dystocia : No SHOULDER DYSTOCIA BABY A Infant Delivery Date/Time: 10/25/2018 06:26 PRESENTATION/POSITION BABY A Presentation: Cephalic Cephalic Presentation: Vertex Vertex Position: Left Occipital Anterior Breech Presentation: N/A PLACENTA INFORMATION BABY A Placenta Delivery Time : 10/25/2018 06:31 Placenta Method of Delivery: Spontaneous Placenta Status: Delivered SCORES BABY A Heart Rate 1 min: >100 bpm Resp Effort 1 min: Good Cry Reflex Irritability 1 min: Cough or Sneeze or Pulls Away Muscle Tone 1 min: Active Motion Color 1 min: Body [place], Extremities Blue Resuscitation Effort 1 min: Tactile Stimulation SCORE 1 MIN: 9 Heart Rate 5 min: >100 bpm Resp Effort 5 min: Good Cry Reflex Irritability 5 min: Cough or Sneeze or Pulls Away Muscle Tone 5 min: Active Motion Color 5 min: Body [place], Extremities Blue Resuscitation Effort 5 min: N/A SCORE 5 MIN: 9 INFORMATION BABY A Gestational Age at Delivery: 39.5 Gestational Status: Term Outcome : Liveborn Infant Condition : Stable Infant Sex: Female IDENTIFICATION/MEDS BABY A ID Band Number: [id number] ID Band Location: Left Leg; Left Arm WEIGHT/LENGTH BABY A Infant Birthweight (gms): 3270 Weight (lb): 7 Infant Weight (oz): 3 CORD INFORMATION BABY A No. Cord Vessels: 3 Nuchal Cord : N/A Cord Blood Taken: Yes Suction: None ASSESSMENT BABY A Infant Complications: None Physical Findings at Delivery: Within Normal Limits Infant Respirations: Appears Normal Appliance Mechanic/ALS Called : No Care By: Julienne Transferred To: Remains with Mother
--- NOTE | 2018-10-25 11:48 | RAD ---
Date of service: 10/25/2018 HISTORY: patient with positive quantiferon test COMPARISON: No prior. TECHNIQUE: Chest PA and lateral FINDINGS: LUNGS: No active pulmonary disease. PLEURA: No significant pleural effusion identified. No pneumothorax apparent. CARDIOVASCULAR: No aortic atherosclerotic calcification present. Normal cardiac size. No pulmonary vascular congestion. OSSEOUS STRUCTURES: No significant abnormalities. VISUALIZED UPPER ABDOMEN: Normal. OTHER FINDINGS: None. IMPRESSION: No active disease.
[2018-10-26 07:15] LABS: BASO # 0.1 K/uL (0.0-0.2); BASO % 1.1 % (0.0-2.0); EOS # 0.1 K/uL (0.0-0.7); HEMOGLOBIN 10.3 g/dL (12.0-16.0); LYMPH % 19.8 % (20.0-40.0); MEAN CELL VOLUME 73.8 fl (81.0-99.0); MEAN CORPUSCULAR HEMOGLOBIN 23.5 pg (27.0-31.0); MEAN CORPUSCULAR HGB CONC 31.8 g/dL (33.0-37.0); MEAN PLATELET VOLUME 8.8 fl (7.2-11.7); MONO # 0.6 K/uL (0.0-0.8); MONO % 5.9 % (0.0-10.0); NEUT # 7.1 K/uL (1.8-7.0); NEUT % 72.2 % (50.0-75.0); NRBC % 0.1 % (0.0-0.0); RBC 4.38 Mil/uL (3.80-5.20); RED CELL DISTRIBUTION WIDTH 16.1 % (11.5-14.5); WHITE BLOOD COUNT 9.9 K/uL (4.8-10.8)
[2018-10-27 11:38] VITALS: BP 124/67; PULSE 90; RESP 20; TEMP 98.7
== END 2018-10-26 22:45 | disposition home or self-care (01) | DRG 560 ==
LOC: H.EROB2 23:35 → H.L&D 10-25 00:14 → H.OB/GYN 10-25 10:16
PROVIDERS: ADMIT Obstetrics & Gynecology; ATTEND Obstetrics & Gynecology
PROC: 10E0XZZ Delivery of Products of Conception, External Approach (ICD-10-PCS; principal; 2018-10-25)
PROC: 0KQM0ZZ Repair Perineum Muscle, Open Approach (ICD-10-PCS; 2018-10-25)
PROC: 4A1HXCZ Monitoring of Products of Conception, Cardiac Rate, External Approach (ICD-10-PCS; 2018-10-25)
DX: O70.1 Second degree perineal laceration during delivery (principal); Z37.0 Single live birth; Z3A.39 39 weeks gestation of pregnancy